=== PATIENT | female | born 1940 | race Caucasian/White ===

== ENCOUNTER 2016-07-05 12:19 | Emergency (ER) | payer MEDICARE ==
[2016-07-05] MEDS ORDERED: ASPIRIN CHEWTAB 81 MG TABLET ONE (13:12)
[2016-07-05] MEDS ORDERED: PREDNISONE 20 MG TABLET ONE ×3 (13:12→14:08)
[2016-07-05 13:23] LABS: ABSOLUTE NEUTROPHIL COUNT 8.9 K/mm3 (1.8-7.7); BASO % 0.1 % (0.2-1.0); HEMOGLOBIN 11.9 gm/l (12.0-16.0); IMM NEUT # 0.1 K/mm3 (0-0.2); IMM NEUT% 0.5 % (0-1); LYMPH # 0.6 (1.0-4.8); LYMPH % 6.1 % (15-45); MEAN CELL VOLUME 96.8 fl (81.0-99.0); MEAN CORPUSCULAR HGB CONC 33.1 g/dl (33.0-37.0); MEAN PLATELET VOLUME 9.3 fl (7.4-10.4); MONO # 0.3 (0.0-0.8); MONO % 2.8 % (4-12); NEUT % 90.5 % (43-75); PLATELET COUNT 205 K/mm3 (130-400); RED CELL DISTRIBUTION WIDTH 12.4 % (11.5-14.5)
[2016-07-05] MEDS ORDERED: ALBUTEROL/IPRATROPIUM 2.5/0.5 MG 3 ML/EACH DOSE ONE (13:36)
--- NOTE | 2016-07-05 13:55 | RAD ---
07/05/2016 1:49 PM CHEST - 2 VIEWS History: Cough for 5 days Comparison: 02/06/2005 Findings: Two views of the chest are obtained. The lungs are clear with out effusion or pneumothorax. The cardiomediastinal silhouette is unremarkable.. The osseous structures are intact.. IMPRESSION: No acute intrathoracic process.
[2016-07-05 14:41] LABS: ALB/GLOB RATIO 1.4 (>1.0); CALCIUM 9.6 mg/dL (8.6-10.3)
[2016-07-05 15:27] LABS: BAND 0 % (0-10); BASOPHIL 0 % (0-1); EOSINOPHIL 0 % (1-3); LYMPHOCYTE 5 % (15-45); MONOCYTE 1 % (4-12); NEUTROPHILS 94 % (43-75); PLATELET ESTIMATE NORMAL (NORMAL); TOTAL CELLS COUNTED 100
== END 2016-07-05 15:22 | disposition home or self-care (01) ==
LOC: ED 12:19
DX: J45.901 Unspecified asthma with (acute) exacerbation (principal); I10 Essential (primary) hypertension